=== PATIENT | female | born 1980 | race Caucasian/White ===

== ENCOUNTER 2018-07-19 20:36 | Day surgery (SDC) | payer BC ==
[~2018-07-19] VITALS: Ht 167.6 cm; Wt 65.9 kg
[~2018-07-19 20:36] MED LIST: BENTYL 20MG20 MG/TAB PO; ZOFRAN ODT8 MG PO
[2018-07-19 20:59] LABS: COLLECTION METHOD CLEAN CATCH
[2018-07-19 21:09] LABS: BASO % 0.2 % (0.0-2.0); EOS # 0.1 (0.0-0.7); EOS % 0.8 % (0-4.0); GRAN # 6.7 (1.4-6.5); GRAN % 70.4 % (42.2-75.2); HEMOGLOBIN 13.1 g/dl (12.5-16.0); LYMPH # 1.9 (1.2-3.4); LYMPH % 20.1 % (20.0-51.0); MEAN CELL VOLUME 92 fl (80.0-100.0); MEAN CORPUSCULAR HEMOGLOBIN 32 pg (27.0-31.0); MEAN CORPUSCULAR HGB CONC 35 g/dl (33.0-37.0); MEAN PLATELET VOLUME 9.8 fl (7.4-10.4); MONO # 0.8 (0.1-0.6); MONO % 8.3 % (1.7-9.3); PLATELET COUNT 245 K/mm3 (130-400); RED BLOOD COUNT 4.12 M/mm3 (4.10-5.30); REDCELL DISTRIBUTION WIDTH-CV 11.9 % (11.5-14.5)
[2018-07-19 21:11] LABS: PH 6 (5-8); SQUAMOUS EPITHELIAL 0-2 /hpf; URINE APPEARANCE Clear; URINE BACTERIA None Seen /hpf; URINE BILIRUBIN Negative (NEGATIVE); URINE BLOOD Negative (NEGATIVE); URINE COLOR Yellow; URINE GLUCOSE Negative (NEGATIVE); URINE KETONE Negative (NEGATIVE); URINE LEUKOCYTE ESTERASE Negative (NEGATIVE); URINE NITRATE Negative (NEGATIVE); URINE PROTEIN(semi-quant) Negative (NEGATIVE); URINE RBC 0-2 /hpf; URINE UROBILINOGEN Negative (NEGATIVE)
[2018-07-19 21:17] LABS: ALBUMIN 4.1 gm/dL (3.5-5.0); BILIRUBIN,TOTAL 0.7 mg/dL (0.0-1.0); C-REACTIVE PROTEIN 1.9 mg/dL (0.0-0.9); CALCIUM 9.8 mg/dL (8.4-10.2); CREATININE, serum 0.43 mg/dL (0.52-1.25); POTASSIUM 3.6 mmol/L (3.4-5.0); TOTAL PROTEIN 7.6 gm/dL (6.4-8.2)
[2018-07-19 23:00] VITALS: BP 127/72; PULSE 103; TEMP 98.4
[2018-07-20] VITALS (10 sets, daily range): BP systolic 100–128; BP diastolic 56–72; PULSE 80–108; TEMP 98.1–98.7
[2018-07-20] MEDS ORDERED: NORCO 325 MG-51 TAB PO (16:17)
[2018-07-20] MEDS ORDERED: COLACE 100100 MG/CAP PO (16:17)
[2018-07-20] MEDS ORDERED: MOTRIN 600600 MG/TAB PO (16:17)
[2018-07-20] MEDS ORDERED: AMOXICILLIN 8751 TAB PO (16:25)
== END 2018-07-20 22:15 | disposition home or self-care (01) ==
LOC: COL.ER 20:36 → SDCO 22:44 → OB 22:44 → SDCO 07-20 22:15
PROVIDERS: Emergency Medicine
DX: K35.80 Unspecified acute appendicitis (principal); K80.20 Calculus of gallbladder without cholecystitis without obstruction; F41.9 Anxiety disorder, unspecified; F32.9 Major depressive disorder, single episode, unspecified; F17.210 Nicotine dependence, cigarettes, uncomplicated; Z79.899 Other long term (current) drug therapy
CPT/HCPCS: OP; G0378; J1100; J1170; J1885; J2250; J2270; J2405; J2543; J2550; J2704; J2710; J3010; J7030; Q9967

== ENCOUNTER → 2018-08-31 | Outpatient (CLI) | payer BC ==
[~2018-08-31] MED LIST changes: +AMOXICILLIN 8751 TAB PO; +COLACE 100100 MG/CAP PO; +MOTRIN 600600 MG/TAB PO; +NORCO 325 MG-51 TAB PO
== END ==
LOC: COL.RAD 13:29
DX: E05.90 Thyrotoxicosis, unspecified without thyrotoxic crisis or storm (principal)
CPT/HCPCS: A9516

== ENCOUNTER → 2021-12-08 | Outpatient (CLI) | payer BC | LOC: MC.RAD 09:49 | DX: Z12.31 Encounter for screening mammogram for malignant neoplasm of breast (principal) ==

== ENCOUNTER 2023-01-08 06:11 | Day surgery (SDC) | payer BC ==
[~2023-01-08] VITALS: Ht 167.6 cm; Wt 78.1 kg
[2023-01-08] MEDS ORDERED: TIROSINT100 MC1 PO (06:50)
[2023-01-08] MEDS ORDERED: XANAX .25M0.25 MG/TA PO (06:50)
[2023-01-08] MEDS ORDERED: TYLENOL 500MG500 MG PO (06:51)
[2023-01-08] MEDS ORDERED: DESYREL 50MG50 MG PO (06:51)
[2023-01-08] MEDS ORDERED: MOTRIN 800800 MG/TAB PO (06:53)
[2023-01-08 06:58] VITALS: BP 96/63; PULSE 72; TEMP 97.8
[2023-01-08 07:45] VITALS: BP 86/53; PULSE 65; TEMP 96.8
--- NOTE | 2023-01-08 07:45 | NUR ---
PATIENT AMBULATED WITH STEADY GAIT TO THE CHAIR. PATIENT ALERT AND ORIENTED, DENIES PAIN, NAUSEA AND SHORTNESS OF BREATH. BREATHING REGULAR AND UNLABORED. SKIN WARM AND DRY. NURSE HANDOFF COMPLETED IN ROOM. SEE CHART FOR VITAL SIGNS. PATIENT HAD A DRINK OF WATER. WATER TOLERATED WELL WITH NO DYSPHAGIA. PATIENT THEN HAD A BLUEBERRY MUFFIN. CALL LIGHT IN REACH.
[2023-01-08 08:00] VITALS: BP 109/69; PULSE 66
[2023-01-08 08:15] VITALS: BP 108/77; PULSE 68
--- NOTE | 2023-01-08 08:15 | NUR ---
MET WITH PATIENT AT 0810 TO DISCUSS PROCEDURE. DISCHARGE TEACHING COMPLETED WITH PRINTED EDUCATION AND INSTRUCTIONS GIVEN TO PATIENT. PATIENT VERBALIZED UNDERSTANDING OF TEACHING. IV REMOVED. PATIENT DISCHARGED HOME WITH [facility].
[2023-01-08 08:39] VITALS: BP 79/53; PULSE 68
== END 2023-01-08 08:26 | disposition home or self-care (01) ==
LOC: SDCO 06:11
DX: D12.2 Benign neoplasm of ascending colon (principal); K63.5 Polyp of colon; K29.71 Gastritis, unspecified, with bleeding; K25.9 Gastric ulcer, unspecified as acute or chronic, without hemorrhage or perforation; K29.80 Duodenitis without bleeding; R19.7 Diarrhea, unspecified; K64.0 First degree hemorrhoids; K64.4 Residual hemorrhoidal skin tags; K59.00 Constipation, unspecified; R14.0 Abdominal distension (gaseous); Z87.891 Personal history of nicotine dependence
CPT/HCPCS: J7120

== ENCOUNTER → 2023-11-25 | Outpatient (CLI) | payer BC ==
[~2023-11-25] MED LIST changes: +DESYREL 50MG50 MG PO; +Iohexol 300 - 10 ML VIAL IV ONE; +MOTRIN 800800 MG/TAB PO; +TIROSINT100 MC1 PO; +TYLENOL 500MG500 MG PO; +Triamcinolone 40 MG/ML 1 ML VIAL IJ ONE; +XANAX .25M0.25 MG/TA PO
== END ==
LOC: COL.RAD 12:37
DX: M16.12 Unilateral primary osteoarthritis, left hip (principal)
CPT/HCPCS: J0665; J3301; Q9967

== ENCOUNTER → 2023-12-21 | Outpatient (CLI) | payer BC ==
[~2023-12-21] MED LIST changes: -Iohexol 300 - 10 ML VIAL IV ONE; -Triamcinolone 40 MG/ML 1 ML VIAL IJ ONE
== END ==
LOC: MC.RAD 10:32
DX: Z12.31 Encounter for screening mammogram for malignant neoplasm of breast (principal)